=== PATIENT | male | born 1965 | race Caucasian/White ===

== ENCOUNTER 2018-05-08 10:56 | Inpatient (IN) | payer OTHER ==
--- NOTE | 2018-05-08 12:26 | HP ---
COWS - Scale Resting Pulse: 0= [place] 80 or Below Sweatin= Chills/Flushing Restless Observation: 3= Extraneous Movement Pupil Size: 1= Pupils >than Normal Bone or Joint Aches: 2= Severe Diffuse Aches Runny Nose/ Eye Tearin= Runny Nose/Eyes GI Upset > 30mins: 3= Vomiting/Diarrhea Tremor Observation: 2= Slight Tremor Visible Yawning Observation: 1= 1-2x During Session Anxiety or Irritability: 2=Irritable/Anxious Goose Flesh Skin: 0=Smooth Skin COWS Score: 17 CIWA Score - CIWA Score Nausea/Vomitin Muscle Tremors: 3 Anxiety: 2 Agitation: 2 Paroxysmal Sweats: 1-Minimal Palms Moist Orientation: 0-Oriented Tacttile Disturbances: 1-Very Mild Itch/Numbness Auditory Disturbances: 1-Very Mild Visual Disturbances: 1-Very Mild Sensitivity Headache: 2-Mild CIWA-Ar Total Score: 16 Admission ROS BHS - HPI Chief Complaint: i need help camilla stop using heroin and alcohol Allergies/Adverse Reactions: Allergies Allergy/AdvReac Type Severity Reaction Status Date / Time Fish Containing Products Allergy Severe Verified 05/08/18 12:32 rofecoxib [From Vioxx] Allergy Severe Verified 05/08/18 12:32 History of Present Illness: this 53 years old male with heroin and alcohol dependence,seeking detox, withdrawal symptom,last detox [facility] 05/03/18 to 05/06/18 not completed surgery for hernia at age of [age] years old anxiety,depression,insomnia nicotine dependence plantar fasciitis longest period of sobriety 2 years Exam Limitations: No Limitations - Ebola screening Have you traveled outside of the country in the last 21 days: No Have you had contact with anyone from an Ebola affected area: No Have you been sick,other than usual withdrawal symptoms: No Do you have a fever: No - Review of Systems Constitutional: Chills, Loss of Appetite, Malaise, Night Sweats, Changes in sleep, Weakness, Unintentional Wgt. Loss EENT: reports: Tearing, Nose Congestion Respiratory: reports: No Symptoms reported Cardiac: reports: No Symptoms Reported GI: reports: Diarrhea, Nausea, Vomiting, Abdominal cramping, Other (scar in epigastrium) : reports: No Symptoms Reported Musculoskeletal: reports: Back Pain, Joint Pain, Muscle Pain, Joint Stiffness Integumentary: reports: Dryness Neuro: reports: Headache, Tremors Endocrine: reports: No Symptoms Reported Hematology: reports: No Symptoms Reported Psychiatric: reports: No Sypmtoms Reported, Judgement Intact, Mood/Affect Appropiate, Anxious, Depressed (insomnia) Patient History - Patient Medical History Hx Asthma: Yes (childhood asthma.) Hx Chronic Obstructive Pulmonary Disease (COPD): No Hx Cancer: No Hx Cardiac Disorders: No Hx Congestive Heart Failure: No Hx Hypertension: No Hx Hypercholesterolemia: No Hx Pacemaker: No HX Cerebrovascular Accident: No Hx Seizures: No Hx Dementia: No Hx Diabetes: No Hx Gastrointestinal Disorders: No Hx Liver Disease: No Hx Genitourinary Disorders: No Hx Sexually Transmitted Disorders: No Hx Renal Disease (ESRD): No Hx Thyroid Disease: No Hx Human Immunodeficiency Virus (HIV): No (2008 negative ) Hx Hepatitis C: No Hx Depression: Yes Hx Suicide Attempt: No Hx Bipolar Disorder: No Hx Schizophrenia: No Other Medical History: no suicidal,no homicidal - Patient Surgical History Past Surgical History: Yes Hx Abdominal Surgery: Yes Other Surgical History: Pt had sx for hiatal hernia at age 12 yrs old. Anesthesia Reaction: No - PPD History Previous Implant?: Yes Documented Results: Negative w/o proof Implanted On Prior [facility] Admission?: No PPD to be Administered?: Yes - Smoking Cessation Smoking history: Current every day smoker Have you smoked in the past 12 months: Yes Aproximately how many cigarettes per day: 10 Hx Chewing Tobacco Use: No Initiated information on smoking cessation: Yes 'Breaking Loose' booklet given: 05/08/18 - Substance & Tx. History Hx Alcohol Use: Yes Hx Substance Use: Yes Substance Use Type: Alcohol, Heroin Hx Substance Use Treatment: Yes ([facility] to 05/06/18 not completed) - Substances Abused Heroin Route: Inhalation Frequency: Daily Amount used: 7 bags Age of first use: 21 Date of Last Use: 05/07/18 Alcohol Route: Oral Frequency: Daily Amount used: 18 beers (12 oz) Age of first use: 17 Date of Last Use: 05/07/18 Family Disease History - Family Disease History Family History: Denies Admission Physical Exam BHS - Vital Signs Vital Signs: Vital Signs - 24 hr 05/08/18 11:05 Temperature 97.2 F L Pulse Rate 73 Respiratory 18 Rate Blood Pressure 131/76 - Physical General Appearance: Yes: Moderate Distress, Alcohol on Breath, Tremorous, Irritable, Sweating, Anxious HEENTM: Yes: Normal ENT Inspection, HEBERT, Pharynx Normal Respiratory: Yes: Within Normal Limits, Lungs Clear, Normal Breath Sounds Neck: Yes: Within Normal Limits, Supple, Trachea in good position Breast: Yes: Within Normal Limits Cardiology: Yes: Within Normal Limits, Regular Rhythm, Regular Rate, S1, S2 Abdominal: Yes: Within Normal Limits, Normal Bowel Sounds, Non Tender, Soft Genitourinary: Yes: Within Normal Limits Back: Yes: Muscle Spasm Musculoskeletal: Yes: full range of Motion, Back pain, Joint Stiffness, Muscle Pain Extremities: Yes: Normal Range of Motion, Tremors Neurological: Yes: return checker II-XII NML intact, Fully Oriented, Alert, Motor Strength 5/5 Integumentary: Yes: Dry Lymphatic: Yes: Within Normal Limits - Diagnostic (1) Opioid dependence with withdrawal Current Visit: Yes Status: Acute (2) Alcohol dependence with uncomplicated withdrawal Current Visit: Yes Status: Acute (3) Weight loss Current Visit: Yes Status: Acute (4) Anxiety and depression Current Visit: Yes Status: Acute (5) Insomnia Current Visit: Yes Status: Acute (6) Nicotine dependence Current Visit: Yes Status: Acute (7) History of abdominal surgery Current Visit: Yes Status: Acute Cleared for Admission [facility] - Detox or Rehab [facility] Level of Care: Medically Managed Detox Regimen/Protocol: Methadone/Librium [facility] Breath Alcohol Content Breath Alcohol Content: 0 Urine Drug Screen - Results Drug Screen Negative: No Urine Drug Screen Results: OPI-Opiates, MTD-Methadone, OXY-Oxycodone, FEN- Fentanyl
[2018-05-08 12:35] VITALS: BMI 25.7
[2018-05-08] MEDS ORDERED: LOPERAMIDE HCL 2 MG CAPSULE PO PRN (12:37)
[2018-05-08] MEDS ORDERED: ACETAMINOPHEN 325 MG TABLET (FP) PO PRN (12:37)
[2018-05-08] MEDS ORDERED: P-EPHED 60MG/TRIPROLIDI 2.5MG TABLET PO PRN (12:37)
[2018-05-08] MEDS ORDERED: hydrOXYzine PAMOATE 25 MG CAPSULE (FP) PO PRN (12:37)
[2018-05-08] MEDS ORDERED: guaiFENesin/D-METHORPHAN HB 10 ML UNIT-DOSE CUPS PO PRN (12:37)
[2018-05-08] MEDS ORDERED: MAGNESIUM HYDROX 2400MG/30ML ORAL SUSPENSION 30 ML CUP PO PRN (12:37)
[2018-05-08] MEDS ORDERED: MENTHOL/PHENOL 1 EACH UD MM PRN (12:37)
[2018-05-08] MEDS ORDERED: MAGNESIUM CITRATE 300 ML BOTTLE PO PRN (12:37)
[2018-05-08] MEDS ORDERED: IBUPROFEN 400 MG TABLET (FP) PO PRN (12:37)
[2018-05-08] MEDS ORDERED: MAG HYDROX/AL HYDROX/SIMETH 30 ML UNIT-DOSE CUP PO PRN (12:37)
[2018-05-08] MEDS ORDERED: METHADONE HCL 10 MG TABLET (FOR DETOX USE ONLY) PO ONE ×2 (13:20→23:00)
[2018-05-08] MEDS: chlordiazePOXIDE HCL 25 MG CAPSULE PO PRN (14:01)
[2018-05-08] MEDS: NICOTINE 14 MG/24 HOURS TOPICAL PATCH TD SCH (14:01)
--- NOTE | 2018-05-08 15:25 | EKG ---
Test Reason : Blood Pressure : / mmHG Vent. Rate : 070 BPM Atrial Rate : 070 BPM P-R Int : 126 ms QRS Dur : 098 ms QT Int : 384 ms P-R-T Axes : 061 054 046 degrees QTc Int : 414 ms NORMAL SINUS RHYTHM MINIMAL VOLTAGE CRITERIA FOR LVH, MAY BE NORMAL VARIANT BORDERLINE ECG NO PREVIOUS ECGS AVAILABLE Confirmed by MARCELA CLARKE MD ([id number]) on 05/08/2018 3:25:36 PM Referred By: Confirmed By:MARCELA CLARKE MD
[2018-05-08] MEDS: chlordiazePOXIDE HCL 25 MG CAPSULE PO SCH ×2 (16:57→22:32)
[2018-05-08 17:20] LABS: URINE APPEARANCE CLEAR; URINE BILIRUBIN NEGATIVE (<2.0 mg/dL); URINE COLOR YELLOW; URINE GLUCOSE (UA) NEGATIVE (NEGATIVE); URINE KETONE NEGATIVE (NEGATIVE); URINE LEUK ESTERASE NEGATIVE (NEGATIVE); URINE NITRITE NEGATIVE (NEGATIVE); URINE PROTEIN NEGATIVE (NEGATIVE); URINE UROBILINOGEN NEGATIVE mg/dL (0.2-1.0)
--- NOTE | 2018-05-08 18:40 | CONSULT ---
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 Substance Abuse History: Confirmed by the patient in this interview.Details in current [facility] report : Smoking history: Current every day smoker. Have you smoked in the past 12 months: Yes. Aproximately how many cigarettes per day: 10. Hx Chewing Tobacco Use: No. Initiated information on smoking cessation: Yes. 'Breaking Loose' booklet given: 05/08/18. - Substance & Tx. History. Hx Alcohol Use: Yes. Hx Substance Use: Yes. Substance Use Type: Alcohol, Heroin. Hx Substance Use Treatment: Yes ([facility] to 05/06/18 not completed). - Substances Abused. Heroin. Route: Inhalation. Frequency: Daily. Amount used: 7 bags. Age of first use: 21. Date of Last Use: . Alcohol. Route: Oral. Frequency: Daily. Amount used: 18 beers (12 oz) . Age of first use: 17. Date of Last Use: 05/07/18 Medical History: Remarkable for plantar fasciitis,tendinitis of both knees and a distant history of surgery for hiatal hernia (age 12). Psychiatric History: No reported history of psychiatric hospitalizations.Patient declares that he got diagnosed with ADHD in childhood.No details about treatment (no longer recalled).Mr Sargent denies having a psychiatric illness in this interview.Complains, however, of refractory insomnia that has responded favorably to trazodone (taken in the past at detox/rehab institutions).Patient denies history of suicide attempts. Physical/Sexual Abuse/Trauma History: Patient denies. Additional Comment: Urine Drug Screen Results: OPI-Opiates, MTD-Methadone, OXY- Oxycodone, FEN-Fentanyl.Noted. Mental Status Exam - Mental Status Exam Alert and Oriented to: Time, Place, Person Cognitive Function: Good Patient Appearance: Well Groomed Mood: Nervous, Anxious, Hopeful Affect: Mood Congruent Patient Behavior: Fatigued, Cooperative Speech Pattern: Clear, Appropriate Voice Loudness: Normal Thought Process: Intact, Goal Oriented Thought Disorder: Not Present Hallucinations: Denies Suicidal Ideation: Denies Insight/Judgement: Poor Sleep: Poorly, Difficulty falling asleep Appetite: Good Muscle strength/Tone: Normal Gait/Station: Normal Psychiatric Findings - Problem List ([place] 1, 2,3) (1) Opioid dependence with withdrawal Current Visit: Yes Status: Acute (2) Alcohol dependence with uncomplicated withdrawal Current Visit: Yes Status: Acute (3) Nicotine dependence Current Visit: Yes Status: Acute (4) Insomnia Current Visit: Yes Status: Acute - Initial Treatment Plan Initial Treatment Plan: Psychoeducation.Sleep hygiene.Detoxification.Trazodone 100 mg po hs.Ordered at patient's specific request.Patient is made aware of the potential for priapism and sedation.Mr Cobb agrees to this careplan (with full knowledge of risks).Observation.
[2018-05-08] MEDS ORDERED: MELATONIN 5 MG TABLETS PO PRN (22:00)
[2018-05-08] MEDS: traZODone HCL 100 MG TABLET (FP) PO SCH (22:32)
[2018-05-08] MEDS: THIAMINE HCL 100 MG TABLET (FP) PO SCH (22:32)
[2018-05-09] MEDS: chlordiazePOXIDE HCL 25 MG CAPSULE PO SCH ×4 (06:05→22:57)
[2018-05-09] MEDS ORDERED: METHADONE HCL 10 MG TABLET (FOR DETOX USE ONLY) PO SCH (10:00)
[2018-05-09 10:02] LABS: HEMATOCRIT 43.1 % (35.4-49); HEMOGLOBIN 14.4 GM/dL (11.7-16.9); MCH 30.1 pg (25.7-33.7); MCHC 33.3 g/dl (32.0-35.9); MEAN CELL VOLUME 90.2 fl (80-96); MEAN PLT VOLUME 9.6 fl (7.5-11.1); PLATELET COUNT 225 K/MM3 (134-434); RBC 4.78 M/mm3 (4.00-5.60); RDW 14.4 % (11.9-15.9); WHITE BLOOD COUNT 7.2 K/mm3 (4.0-10.0)
[2018-05-09] MEDS: PRENATAL VITAMINS W/ FOLIC ACID TABLET (FP) PO SCH (10:12)
[2018-05-09] MEDS: NICOTINE 14 MG/24 HOURS TOPICAL PATCH TD SCH (10:12)
[2018-05-09 10:19] LABS: ALBUMIN 3.6 g/dl (3.4-5.0); ALK PHOS 98 U/L (45-117); ANION GAP 5 MMOL/L (8-16); BILIRUBIN,TOTAL 0.4 mg/dL (0.2-1); BLOOD UREA NITROGEN 14 mg/dL (7-18); CALCIUM 8.9 mg/dL (8.5-10.1); CHLORIDE 105 mmol/L (98-107); CO2 27 mmol/L (21-32); CREATININE 0.9 mg/dL (0.55-1.3); GLUCOSE,RANDOM 92 mg/dL (74-106); POTASSIUM 4.2 mmol/L (3.5-5.1); SGOT/AST 15 U/L (15-37); SGPT/ALT 21 U/L (13-61); SODIUM 137 mmol/L (136-145)
--- NOTE | 2018-05-09 12:03 | PN ---
[facility] CIWA - CIWA Score Nausea/Vomitin Muscle Tremors: 4-Moderate,w/Arms Extend Anxiety: 4-Mod. Anxious/Guarded Agitation: 4-Moderately Restless Paroxysmal Sweats: 3 Orientation: 0-Oriented Tacttile Disturbances: 0-None Auditory Disturbances: 0-None Visual Disturbances: 0-None Headache: 1-Very Mild CIWA-Ar Total Score: 19 [facility] COWS - Scale Resting Pulse: 0= [place] 80 or Below Sweatin= Chills/Flushing Restless Observation: 3= Extraneous Movement Pupil Size: 0= Normal to Room Light Bone or Joint Aches: 2= Severe Diffuse Aches Runny Nose/ Eye Tearin= Runny Nose/Eyes GI Upset > 30mins: 2= Nausea/Diarrhea Tremor Observation of Outstretched Hands: 2= Slight Tremor Visible Yawning Observation: 1= 1-2x During Session Anxiety or Irritability: 2=Irritable/Anxious Goose Flesh Skin: 0=Smooth Skin COWS Score: 15 [facility] Progress Note (SOAP) Subjective: Anxious, interrupted sleep Objective: 05/09/18 12:02 Last Vital Signs Temp Pulse Resp BP Pulse Ox 96.3 F L 59 L 18 104/57 L 05/09/18 09:14 05/09/18 09:14 05/09/18 09:14 05/09/18 09:14 Laboratory Tests 05/08/18 05/09/18 05/09/18 14:40 06:00 06:00 WBC 7.2 RBC 4.78 Hgb 14.4 Hct 43.1 MCV 90.2 MCH 30.1 MCHC 33.3 RDW 14.4 Plt Count 225 MPV 9.6 Sodium 137 Potassium 4.2 Chloride 105 Carbon Dioxide 27 Anion Gap 5 L BUN 14 Creatinine 0.9 Creat Clearance w eGFR > 60 Random Glucose 92 Calcium 8.9 Total Bilirubin 0.4 AST 15 ALT 21 Alkaline Phosphatase 98 Total Protein 7.0 Albumin 3.6 Urine Color Yellow Urine Appearance Clear Urine pH 6.0 Ur Specific [place] 1.023 Urine Protein Negative Urine Glucose (UA) Negative Urine Ketones Negative Urine Blood Negative Urine Nitrite Negative Urine Bilirubin Negative Urine Urobilinogen Negative Ur Leukocyte Esterase Negative RPR Titer 05/09/18 06:00 WBC RBC Hgb Hct MCV MCH MCHC RDW Plt Count MPV Sodium Potassium Chloride Carbon Dioxide Anion Gap BUN Creatinine Creat Clearance w eGFR Random Glucose Calcium Total Bilirubin AST ALT Alkaline Phosphatase Total Protein Albumin Urine Color Urine Appearance Urine pH Ur Specific [place] Urine Protein Urine Glucose (UA) Urine Ketones Urine Blood Urine Nitrite Urine Bilirubin Urine Urobilinogen Ur Leukocyte Esterase RPR Titer Nonreactive Labs reviewed Assessment: 05/09/18 12:03 Withdrawal symptoms Plan: Continue detox Encouraged PO water hydration
[2018-05-09] MEDS: chlordiazePOXIDE HCL 25 MG CAPSULE PO PRN (14:30)
[2018-05-09] MEDS: THIAMINE HCL 100 MG TABLET (FP) PO SCH (22:57)
[2018-05-09] MEDS: traZODone HCL 100 MG TABLET (FP) PO SCH (22:58)
[2018-05-10] MEDS: chlordiazePOXIDE HCL 25 MG CAPSULE PO SCH ×2 (06:50→10:18)
[2018-05-10] MEDS: PRENATAL VITAMINS W/ FOLIC ACID TABLET (FP) PO SCH (10:16)
[2018-05-10] MEDS: METHADONE HCL 5 MG TABLET (FOR DETOX USE ONLY) PO SCH (10:17)
[2018-05-10] MEDS: NICOTINE 14 MG/24 HOURS TOPICAL PATCH TD SCH (10:18)
--- NOTE | 2018-05-10 12:38 | PN ---
[facility] CIWA - CIWA Score Nausea/Vomitin-Mild Nausea/No Vomiting Muscle Tremors: 3 Anxiety: 4-Mod. Anxious/Guarded Agitation: 3 Paroxysmal Sweats: 3 Orientation: 0-Oriented Tacttile Disturbances: 0-None Auditory Disturbances: 0-None Visual Disturbances: 0-None Headache: 1-Very Mild CIWA-Ar Total Score: 15 [facility] COWS - Scale Resting Pulse: 0= [place] 80 or Below Sweatin= Chills/Flushing Restless Observation: 3= Extraneous Movement Pupil Size: 0= Normal to Room Light Bone or Joint Aches: 2= Severe Diffuse Aches Runny Nose/ Eye Tearin= Runny Nose/Eyes GI Upset > 30mins: 2= Nausea/Diarrhea Tremor Observation of Outstretched Hands: 2= Slight Tremor Visible Yawning Observation: 1= 1-2x During Session Anxiety or Irritability: 2=Irritable/Anxious Goose Flesh Skin: 0=Smooth Skin COWS Score: 15 [facility] Progress Note (SOAP) Subjective: Anxious, sweating, interrupted sleep Objective: 05/10/18 12:37 Last Vital Signs Temp Pulse Resp BP Pulse Ox 97.0 F L 63 18 108/68 05/10/18 09:12 05/10/18 09:12 05/10/18 09:12 05/10/18 09:12 Laboratory Tests 05/08/18 05/09/18 05/09/18 14:40 06:00 06:00 WBC 7.2 RBC 4.78 Hgb 14.4 Hct 43.1 MCV 90.2 MCH 30.1 MCHC 33.3 RDW 14.4 Plt Count 225 MPV 9.6 Sodium 137 Potassium 4.2 Chloride 105 Carbon Dioxide 27 Anion Gap 5 L BUN 14 Creatinine 0.9 Creat Clearance w eGFR > 60 Random Glucose 92 Calcium 8.9 Total Bilirubin 0.4 AST 15 ALT 21 Alkaline Phosphatase 98 Total Protein 7.0 Albumin 3.6 Urine Color Yellow Urine Appearance Clear Urine pH 6.0 Ur Specific [place] 1.023 Urine Protein Negative Urine Glucose (UA) Negative Urine Ketones Negative Urine Blood Negative Urine Nitrite Negative Urine Bilirubin Negative Urine Urobilinogen Negative Ur Leukocyte Esterase Negative RPR Titer 05/09/18 06:00 WBC RBC Hgb Hct MCV MCH MCHC RDW Plt Count MPV Sodium Potassium Chloride Carbon Dioxide Anion Gap BUN Creatinine Creat Clearance w eGFR Random Glucose Calcium Total Bilirubin AST ALT Alkaline Phosphatase Total Protein Albumin Urine Color Urine Appearance Urine pH Ur Specific [place] Urine Protein Urine Glucose (UA) Urine Ketones Urine Blood Urine Nitrite Urine Bilirubin Urine Urobilinogen Ur Leukocyte Esterase RPR Titer Nonreactive Labs reviewed Assessment: 05/10/18 12:38 Withdrawal symptoms Plan: Continue detox
[2018-05-10] MEDS: chlordiazePOXIDE 5 MG CAPSULE PO SCH ×2 (18:12→22:31)
[2018-05-10] MEDS: THIAMINE HCL 100 MG TABLET (FP) PO SCH (22:31)
[2018-05-10] MEDS: traZODone HCL 100 MG TABLET (FP) PO SCH (22:31)
[2018-05-11] MEDS: chlordiazePOXIDE 5 MG CAPSULE PO SCH ×2 (05:38→10:47)
[2018-05-11] MEDS: PRENATAL VITAMINS W/ FOLIC ACID TABLET (FP) PO SCH (10:47)
[2018-05-11] MEDS: NICOTINE 14 MG/24 HOURS TOPICAL PATCH TD SCH (10:47)
[2018-05-11] MEDS: METHADONE HCL 5 MG TABLET (FOR DETOX USE ONLY) PO SCH (10:48)
--- NOTE | 2018-05-11 11:27 | PN ---
S Progress Note (SOAP) Subjective: Mild irritability and interrupted sleep Objective: 05/11/18 11:27 Vital Signs - 8 hr 05/11/18 05/11/18 03:30 06:22 Temperature 97.3 F L Pulse Rate 60 Respiratory 18 18 Rate Blood Pressure 100/61 Laboratory Last Values WBC 7.2 K/mm3 (4.0-10.0) 05/09/18 06:00 RBC 4.78 M/mm3 (4.00-5.60) 05/09/18 06:00 Hgb 14.4 GM/dL (11.7-16.9) 05/09/18 06:00 Hct 43.1 % (35.4-49) 05/09/18 06:00 MCV 90.2 fl (80-96) 05/09/18 06:00 MCH 30.1 pg (25.7-33.7) 05/09/18 06:00 MCHC 33.3 g/dl (32.0-35.9) 05/09/18 06:00 RDW 14.4 % (11.9-15.9) 05/09/18 06:00 Plt Count 225 K/MM3 (134-434) 05/09/18 06:00 MPV 9.6 fl (7.5-11.1) 05/09/18 06:00 Sodium 137 mmol/L (136-145) 05/09/18 06:00 Potassium 4.2 mmol/L (3.5-5.1) 05/09/18 06:00 Chloride 105 mmol/L (98-107) 05/09/18 06:00 Carbon Dioxide 27 mmol/L (21-32) 05/09/18 06:00 Anion Gap 5 MMOL/L (8-16) L 05/09/18 06:00 BUN 14 mg/dL (7-18) 05/09/18 06:00 Creatinine 0.9 mg/dL (0.55-1.3) 05/09/18 06:00 Creat Clearance w eGFR > 60 (>60) 05/09/18 06:00 Random Glucose 92 mg/dL (74-106) 05/09/18 06:00 Calcium 8.9 mg/dL (8.5-10.1) 05/09/18 06:00 Total Bilirubin 0.4 mg/dL (0.2-1) 05/09/18 06:00 AST 15 U/L (15-37) 05/09/18 06:00 ALT 21 U/L (13-61) 05/09/18 06:00 Alkaline Phosphatase 98 U/L (45-117) 05/09/18 06:00 Total Protein 7.0 g/dl (6.4-8.2) 05/09/18 06:00 Albumin 3.6 g/dl (3.4-5.0) 05/09/18 06:00 Urine Color Yellow 05/08/18 14:40 Urine Appearance Clear 05/08/18 14:40 Urine pH 6.0 (5.0-8.0) 05/08/18 14:40 Ur Specific [place] 1.023 (1.001-1.035) 05/08/18 14:40 Urine Protein Negative (NEGATIVE) 05/08/18 14:40 Urine Glucose (UA) Negative (NEGATIVE) 05/08/18 14:40 Urine Ketones Negative (NEGATIVE) 05/08/18 14:40 Urine Blood Negative (NEGATIVE) 05/08/18 14:40 Urine Nitrite Negative (NEGATIVE) 05/08/18 14:40 Urine Bilirubin Negative (<2.0 mg/dL) 05/08/18 14:40 Urine Urobilinogen Negative mg/dL (0.2-1.0) 05/08/18 14:40 Ur Leukocyte Esterase Negative (NEGATIVE) 05/08/18 14:40 RPR Titer Nonreactive (NONREACTIVE) 05/09/18 06:00 Labs noted Assessment: 05/11/18 11:27 Withdrawal sx Plan: Continue detox
[2018-05-11] MEDS: chlordiazePOXIDE HCL 10 MG CAPSULE PO SCH ×2 (17:31→22:17)
[2018-05-11] MEDS: traZODone HCL 100 MG TABLET (FP) PO SCH (22:17)
[2018-05-11] MEDS: THIAMINE HCL 100 MG TABLET (FP) PO SCH (22:17)
[2018-05-12] MEDS: chlordiazePOXIDE HCL 10 MG CAPSULE PO SCH ×2 (05:50→10:15)
[2018-05-12] MEDS ORDERED: METHADONE HCL 10 MG TABLET (FOR DETOX USE ONLY) PO SCH (10:00)
[2018-05-12] MEDS: PRENATAL VITAMINS W/ FOLIC ACID TABLET (FP) PO SCH (10:16)
[2018-05-12] MEDS: NICOTINE 14 MG/24 HOURS TOPICAL PATCH TD SCH (10:16)
--- NOTE | 2018-05-12 16:43 | PN ---
[facility] Progress Note (SOAP) Subjective: Denies any complaints; appears anxious, restless Objective: 05/12/18 16:42 Last Vital Signs Temp Pulse Resp BP Pulse Ox 96.4 F L 74 18 112/79 05/12/18 14:53 05/12/18 14:53 05/12/18 14:53 05/12/18 14:53 Laboratory Tests 05/08/18 05/09/18 05/09/18 14:40 06:00 06:00 WBC 7.2 RBC 4.78 Hgb 14.4 Hct 43.1 MCV 90.2 MCH 30.1 MCHC 33.3 RDW 14.4 Plt Count 225 MPV 9.6 Sodium 137 Potassium 4.2 Chloride 105 Carbon Dioxide 27 Anion Gap 5 L BUN 14 Creatinine 0.9 Creat Clearance w eGFR > 60 Random Glucose 92 Calcium 8.9 Total Bilirubin 0.4 AST 15 ALT 21 Alkaline Phosphatase 98 Total Protein 7.0 Albumin 3.6 Urine Color Yellow Urine Appearance Clear Urine pH 6.0 Ur Specific [place] 1.023 Urine Protein Negative Urine Glucose (UA) Negative Urine Ketones Negative Urine Blood Negative Urine Nitrite Negative Urine Bilirubin Negative Urine Urobilinogen Negative Ur Leukocyte Esterase Negative RPR Titer 05/09/18 06:00 WBC RBC Hgb Hct MCV MCH MCHC RDW Plt Count MPV Sodium Potassium Chloride Carbon Dioxide Anion Gap BUN Creatinine Creat Clearance w eGFR Random Glucose Calcium Total Bilirubin AST ALT Alkaline Phosphatase Total Protein Albumin Urine Color Urine Appearance Urine pH Ur Specific [place] Urine Protein Urine Glucose (UA) Urine Ketones Urine Blood Urine Nitrite Urine Bilirubin Urine Urobilinogen Ur Leukocyte Esterase RPR Titer Nonreactive Labs reviewed Assessment: 05/12/18 16:42 Withdrawal sx Plan: Continue detox
[2018-05-12] MEDS: THIAMINE HCL 100 MG TABLET (FP) PO SCH (22:14)
[2018-05-12] MEDS: traZODone HCL 100 MG TABLET (FP) PO SCH (22:14)
[2018-05-13] MEDS ORDERED: METHADONE HCL 5 MG TABLET (FOR DETOX USE ONLY) PO SCH (06:00)
[2018-05-13] MEDS: NICOTINE 14 MG/24 HOURS TOPICAL PATCH TD SCH (10:12)
[2018-05-13] MEDS: PRENATAL VITAMINS W/ FOLIC ACID TABLET (FP) PO SCH (10:12)
--- NOTE | 2018-05-13 12:52 | DS ---
[facility] Detox Discharge Summary Admission Date: 05/08/18 Discharge Date: 05/13/18 - History Present History: Alcohol Dependence, Opioid Dependence Pertinent Past History: Denies - Physical Exam Results Vital Signs: Vital Signs Temperature 97.2 F L 05/13/18 09:44 Pulse Rate 93 H 05/13/18 09:44 Respiratory Rate 18 05/13/18 09:44 Blood Pressure 105/68 05/13/18 09:44 O2 Sat by Pulse Oximetry (%) Pertinent Admission Physical Exam Findings: Withdrawal sxs Laboratory Tests 05/08/18 05/09/18 05/09/18 14:40 06:00 06:00 WBC 7.2 RBC 4.78 Hgb 14.4 Hct 43.1 MCV 90.2 MCH 30.1 MCHC 33.3 RDW 14.4 Plt Count 225 MPV 9.6 Sodium 137 Potassium 4.2 Chloride 105 Carbon Dioxide 27 Anion Gap 5 L BUN 14 Creatinine 0.9 Creat Clearance w eGFR > 60 Random Glucose 92 Calcium 8.9 Total Bilirubin 0.4 AST 15 ALT 21 Alkaline Phosphatase 98 Total Protein 7.0 Albumin 3.6 Urine Color Yellow Urine Appearance Clear Urine pH 6.0 Ur Specific [place] 1.023 Urine Protein Negative Urine Glucose (UA) Negative Urine Ketones Negative Urine Blood Negative Urine Nitrite Negative Urine Bilirubin Negative Urine Urobilinogen Negative Ur Leukocyte Esterase Negative RPR Titer 05/09/18 06:00 WBC RBC Hgb Hct MCV MCH MCHC RDW Plt Count MPV Sodium Potassium Chloride Carbon Dioxide Anion Gap BUN Creatinine Creat Clearance w eGFR Random Glucose Calcium Total Bilirubin AST ALT Alkaline Phosphatase Total Protein Albumin Urine Color Urine Appearance Urine pH Ur Specific [place] Urine Protein Urine Glucose (UA) Urine Ketones Urine Blood Urine Nitrite Urine Bilirubin Urine Urobilinogen Ur Leukocyte Esterase RPR Titer Nonreactive Labs reviewed - Treatment Hospital Course: Detox Protocol Followed, Detoxed Safely, Responded well, Discharged Condition Good - Medication Discharge Medications: Ambulatory Orders NK [No Known Home Medication] 05/08/18 - Diagnosis (1) Alcohol dependence with uncomplicated withdrawal Current Visit: Yes Status: Acute (2) Anxiety and depression Current Visit: Yes Status: Acute (3) Insomnia Current Visit: Yes Status: Acute Qualifiers: Insomnia type: alcohol-induced Qualified Code(s): F10.982 - Alcohol use, unspecified with alcohol-induced sleep disorder (4) Nicotine dependence Current Visit: Yes Status: Acute Qualifiers: Nicotine product type: cigarettes Substance use status: uncomplicated Qualified Code(s): F17.210 - Nicotine dependence, cigarettes, uncomplicated (5) Opioid dependence with withdrawal Current Visit: Yes Status: Acute - AMA Did Patient Leave Against Medical Advice: No (F/U with PCP within 1-2 weeks)
[2018-05-13 13:42] VITALS: BP 97/67; PULSE 91; TEMP 97
== END 2018-05-13 17:17 | disposition other institution (70) | DRG 773 ==
LOC: YASAS 10:56 → Y3N 12:37
PROC: HZ2ZZZZ Detoxification Services for Substance Abuse Treatment (ICD-10-PCS; principal; 2018-05-08)
DX: F11.23 Opioid dependence with withdrawal (principal); F10.230 Alcohol dependence with withdrawal, uncomplicated; F10.282 Alcohol dependence with alcohol-induced sleep disorder; F17.210 Nicotine dependence, cigarettes, uncomplicated; F41.8 Other specified anxiety disorders; Z91.013 Allergy to seafood; Z88.8 Allergy status to other drugs, medicaments and biological substances; Z87.898 Personal history of other specified conditions
CPT/HCPCS: 36415; 80053; 81003; 85027; 86593; 93005; 93010

== ENCOUNTER 2018-05-13 17:38 | Inpatient (IN) | payer OTHER ==
[2018-05-13 19:47] VITALS: BMI 26.6
[2018-05-13] MEDS ORDERED: MAG HYDROX/AL HYDROX/SIMETH 30 ML UNIT-DOSE CUP PO PRN (20:26)
[2018-05-13] MEDS ORDERED: LOPERAMIDE HCL 2 MG CAPSULE PO PRN (20:26)
[2018-05-13] MEDS ORDERED: MAGNESIUM CITRATE 300 ML BOTTLE PO PRN (20:26)
[2018-05-13] MEDS ORDERED: NICOTINE POLACRILEX 2 MG GUM BUC PRN (20:26)
[2018-05-13] MEDS ORDERED: hydrOXYzine PAMOATE 50 MG CAPSULE (FP) PO PRN (20:26)
[2018-05-13] MEDS ORDERED: guaiFENesin/D-METHORPHAN HB 10 ML UNIT-DOSE CUPS PO PRN (20:26)
[2018-05-13] MEDS ORDERED: MAGNESIUM HYDROX 2400MG/30ML ORAL SUSPENSION 30 ML CUP PO PRN (20:26)
[2018-05-13] MEDS ORDERED: IBUPROFEN 400 MG TABLET (FP) PO PRN (20:26)
[2018-05-13] MEDS ORDERED: ACETAMINOPHEN 325 MG TABLET (FP) PO PRN (20:26)
[2018-05-13] MEDS ORDERED: P-EPHED 60MG/TRIPROLIDI 2.5MG TABLET PO PRN (20:26)
[2018-05-13] MEDS ORDERED: MENTHOL/PHENOL 1 EACH UD MM PRN (20:26)
--- NOTE | 2018-05-13 20:29 | HP ---
[facility] Rehab Assess/Revision - Admission History Admitted to Rehab from: [facility] [place] Date of Admission to Rehab: 05/13/1981 - Vital signs Vital Signs: Vital Signs Period Temp Pulse Resp BP Sys/Schmid Pulse Ox Last 24 Hr 97.9 F 88 16 134/83 - Findings Detox History & Physical reviewed: Yes Concur with findings: Yes Comments/Additional Findings: Tolerated detox Inpatient Rehab Admission - Initial Determination Are CD services needed?: Yes Free of communicable disease: Yes Not in need of hospitalization: Yes - Rehab Admission Criteria Previous failed treatment: Yes Poor recovery environment: Yes Comorbidities: Yes Lacks judgement: No Patient is meeting Inpatient Rehab admission criteria:: Yes
[2018-05-13] MEDS ORDERED: MELATONIN 5 MG TABLETS PO PRN (22:00)
[2018-05-13] MEDS: THIAMINE HCL 100 MG TABLET (FP) PO SCH (22:06)
[2018-05-13] MEDS: SUVOREXANT 10 MG TABLET PO SCH (22:06)
[2018-05-13] MEDS: traZODone HCL 100 MG TABLET (FP) PO SCH (22:06)
--- NOTE | 2018-05-14 07:54 | HP ---
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 Smokes 10 cigarettes daily Psychiatric History: Patient reports that he was diagnosed with ADHD at age 12 and started on Thorazine up to 100 mg/day. Claims his mother decided to take him off the medication because he was so lethargic and could not function in school even after the dose was lowered. As an adult over the years, he was prescribed Trazadone for insomnia whenever admitted to substance abuse facilities for inpatient treatment. Denies history of previous psychiatric hospitalization or suicidal attempt. He was seen by Dr Mederos on 05/07/18 while in detox and he was prescribed Trazadone 100 mg po HS. Last night Dr Park was called by nursing staff on behalf of patient who could sleep despite taking Trazadone. Dr Small ordered Belsomra 10 mg po HS prn. At present, reports doing well but sleeping poorly before getting combinanation of meds Physical/Sexual Abuse/Trauma History: Denies Additional Comment: Reports history of multiple previous arrests including 3 felony convictions. Denies being on parole/probation at present Vital Signs: Vital Signs - 24 hr 05/13/18 05/14/18 05/14/18 17:40 00:30 03:30 Temperature 97.9 F Pulse Rate 88 Respiratory 16 16 16 Rate Blood Pressure 134/83 05/14/18 07:06 Temperature -97.7 F L Pulse Rate 74 Respiratory 18 Rate Blood Pressure 104/68 Allergies/Adverse Reactions: Allergies Allergy/AdvReac Type Severity Reaction Status Date / Time Fish Containing Products Allergy Severe Itching Verified 05/13/18 19:09 rofecoxib [From Vioxx] Allergy Severe Hives Verified 05/13/18 19:09 Date of last physical exam: 05/08/18 Concur with the findings of this exam: Yes - Substance Abuse/Tx History Hx Alcohol Use: Yes Hx Substance Use: Yes Substance Use Type: Alcohol (Started drinking alcohol at age 17, consumes 18x 12oz of beer daily. Last drank on 05/07/18), Heroin (Started using heroin at age 21, consumes 7 bags daily. Last used on 05/07/18) Hx Substance Use Treatment: Yes (Multiple previous inpt detox & 5 inpt rehab admissions) Mental Status Exam - Mental Status Exam Alert and Oriented to: Time, Place, Person Cognitive Function: Fair Patient Appearance: Well Groomed Mood: Hopeful, Euthymic Patient Behavior: Cooperative Speech Pattern: Clear Voice Loudness: Normal Thought Process: Intact, Goal Oriented Thought Disorder: Not Present Hallucinations: Denies Suicidal Ideation: Denies Homicidal Ideation: Denies Insight/Judgement: Fair Sleep: Poorly Appetite: Good Muscle strength/Tone: Normal Gait/Station: Normal Psychiatric Findings - Problem List ([place] 1, 2,3) (1) Alcohol dependence Current Visit: Yes Status: Acute (2) Opioid dependence Current Visit: Yes Status: Acute (3) Nicotine dependence Current Visit: No Status: Chronic Qualifiers: Nicotine product type: cigarettes Substance use status: uncomplicated Qualified Code(s): F17.210 - Nicotine dependence, cigarettes, uncomplicated (4) ADHD (attention deficit hyperactivity disorder) Current Visit: Yes Status: Chronic (5) Substance-induced sleep disorder Current Visit: Yes Status: Acute (6) History of abdominal surgery Current Visit: No Status: Suspected - Initial Treatment Plan Initial Treatment Plan: 1) Continue Trazadone 100 mg po HS and Belsomra 10 mg po HS prn for insomnia. 2) Monitor progress
[2018-05-14] MEDS: NICOTINE 14 MG/24 HOURS TOPICAL PATCH TD SCH (10:20)
[2018-05-14] MEDS: PRENATAL VITAMINS W/ FOLIC ACID TABLET (FP) PO SCH (10:21)
[2018-05-14] MEDS: traZODone HCL 100 MG TABLET (FP) PO SCH (21:17)
[2018-05-14] MEDS: THIAMINE HCL 100 MG TABLET (FP) PO SCH (21:17)
[2018-05-14] MEDS: SUVOREXANT 10 MG TABLET PO SCH (21:17)
[2018-05-15] MEDS: PRENATAL VITAMINS W/ FOLIC ACID TABLET (FP) PO SCH (10:22)
[2018-05-15] MEDS: NICOTINE 14 MG/24 HOURS TOPICAL PATCH TD SCH (10:22)
[2018-05-15] MEDS: SUVOREXANT 10 MG TABLET PO SCH (21:09)
[2018-05-15] MEDS: traZODone HCL 100 MG TABLET (FP) PO SCH (21:09)
[2018-05-15] MEDS: THIAMINE HCL 100 MG TABLET (FP) PO SCH (21:09)
[2018-05-16] MEDS: PRENATAL VITAMINS W/ FOLIC ACID TABLET (FP) PO SCH (10:01)
[2018-05-16] MEDS: NICOTINE 14 MG/24 HOURS TOPICAL PATCH TD SCH (10:01)
[2018-05-16] MEDS: SUVOREXANT 10 MG TABLET PO SCH (21:23)
[2018-05-16] MEDS: THIAMINE HCL 100 MG TABLET (FP) PO SCH (21:23)
[2018-05-16] MEDS: traZODone HCL 100 MG TABLET (FP) PO SCH (21:23)
[2018-05-17 07:23] VITALS: BP 134/77; PULSE 76; TEMP 97.8
--- NOTE | 2018-05-17 10:43 | PN ---
[facility] Progress Note Note: PT DECLINED TO CONTINUE WITH REHAB AND WANTS TO SIGN OUT AMA. SPOKEN TO BY COUNSELING STAFF. ALERT O X 3. NAD. Vital Signs 05/17/18 05/17/18 03:30 07:23 Temperature 97.8 F Pulse Rate 76 Respiratory 16 18 Rate Blood Pressure 134/77
[2018-05-17] MEDS: NICOTINE 14 MG/24 HOURS TOPICAL PATCH TD SCH (10:51)
[2018-05-17] MEDS: PRENATAL VITAMINS W/ FOLIC ACID TABLET (FP) PO SCH (10:51)
== END 2018-05-17 10:42 | disposition left against medical advice (07) | DRG 770 ==
LOC: YASAS 17:38 → Y3W 17:40
PROVIDERS: ADMIT Psychiatry & Neurology Psychiatry; ATTEND Psychiatry & Neurology Psychiatry
PROC: HZ42ZZZ Group Counseling for Substance Abuse Treatment, Cognitive-Behavioral (ICD-10-PCS; principal; 2018-05-13)
DX: F11.20 Opioid dependence, uncomplicated (principal); F10.20 Alcohol dependence, uncomplicated; F17.210 Nicotine dependence, cigarettes, uncomplicated; F19.282 Other psychoactive substance dependence with psychoactive substance-induced sleep disorder; F90.9 Attention-deficit hyperactivity disorder, unspecified type

== ENCOUNTER 2018-06-25 11:14 | Inpatient (IN) | payer OTHER ==
[2018-06-25 12:02] VITALS: BMI 26.3
--- NOTE | 2018-06-25 12:52 | HP ---
COWS - Scale Resting Pulse: 0= [place] 80 or Below Sweatin= Chills/Flushing Restless Observation: 1= Difficult to Sit Still Pupil Size: 1= Pupils >than Normal Bone or Joint Aches: 2= Severe Diffuse Aches Runny Nose/ Eye Tearin= Runny Nose/Eyes GI Upset > 30mins: 2= Nausea/Diarrhea Tremor Observation: 2= Slight Tremor Visible Yawning Observation: 2= >3x During Session Anxiety or Irritability: 2=Irritable/Anxious Goose Flesh Skin: 0=Smooth Skin COWS Score: 15 CIWA Score Nausea/Vomitin Muscle Tremors: 2 Anxiety: 2 Agitation: 2 Paroxysmal Sweats: 1-Minimal Palms Moist Orientation: 0-Oriented Tacttile Disturbances: 1-Very Mild Itch/Numbness Auditory Disturbances: 1-Very Mild Visual Disturbances: 0-None Headache: 2-Mild CIWA-Ar Total Score: 13 - Admission Criteria [facility] Guidelines: Admission for Medically Managed Detox: Requires at least one of the followin. CIWA greater than 12 2. Seizures within the past 24 hours 3. Delirium tremens within the past 24 hours 4. Hallucinations within the past 24 hours 5. Acute intervention needed for co occurring medical disorder 6. Acute intervention needed for co occurring psychiatric disorder 7. Severe withdrawal that cannot be handled at a lower level of care (continued vomiting, continued diarrhea, abnormal vital signs) requiring intravenous medication and/or fluids 8. Patient presents the following: CIWA greater than 12 Admission Criteria Met: Admission criteria met Admission ROS [facility] Chief Complaint: i need help to stop using heroin and alcohol Allergies/Adverse Reactions: Allergies Allergy/AdvReac Type Severity Reaction Status Date / Time Fish Containing Products Allergy Severe Itching Verified 06/25/18 12:43 rofecoxib [From Vioxx] Allergy Severe Hives Verified 06/25/18 12:43 History of Present Illness: this 53 years old male with jluis and alcohol dependence,seeking detox, withdrawal symptom,last detox 05/08/18 to 05/13/18,rehab 05/13/18 to history of plantar fasciitis weight loss anxiety,depression,insomnia history of abdominal surgery at age of 12 years nicotine dependence no significant period of sobriety Exam Limitations: No Limitations - Ebola screening Have you traveled outside of the country in the last 21 days: No Have you had contact with anyone from an Ebola affected area: No Have you been sick,other than usual withdrawal symptoms: No Do you have a fever: No - Review of Systems Constitutional: Loss of Appetite, Malaise, Night Sweats, Changes in sleep, Weakness, Unintentional Wgt. Loss EENT: reports: Tearing, Nose Congestion Respiratory: reports: No Symptoms reported Cardiac: reports: No Symptoms Reported GI: reports: Nausea, Vomiting, Abdominal cramping : reports: No Symptoms Reported Musculoskeletal: reports: Back Pain, Joint Pain, Muscle Pain, Joint Stiffness Integumentary: reports: Dryness Neuro: reports: Headache, Tremors Endocrine: reports: No Symptoms Reported Hematology: reports: No Symptoms Reported Psychiatric: reports: No Sypmtoms Reported, Judgement Intact, Mood/Affect Appropiate, Orientated x3, Anxious, Depressed (insomnia) Patient History - Patient Medical History Hx Anemia: No Hx Asthma: No Hx Chronic Obstructive Pulmonary Disease (COPD): No Hx Cancer: No Hx Cardiac Disorders: No Hx Congestive Heart Failure: No Hx Hypertension: No Hx Hypercholesterolemia: No Hx Pacemaker: No HX Cerebrovascular Accident: No Hx Seizures: No Hx Dementia: No Hx Diabetes: No Hx Gastrointestinal Disorders: No Hx Liver Disease: No Hx Genitourinary Disorders: No Hx Sexually Transmitted Disorders: No Hx Renal Disease (ESRD): No Hx Thyroid Disease: No Hx Human Immunodeficiency Virus (HIV): No (2008 negative ) Hx Hepatitis C: No Hx Depression: No Hx Suicide Attempt: No Hx Bipolar Disorder: No Hx Schizophrenia: No Other Medical History: no suicidal,no homicidal,plantar fasciitis - Patient Surgical History Past Surgical History: Yes Hx Abdominal Surgery: Yes (abdominal surgery diaphramatic hernia at age of 12) Other Surgical History: Pt had sx for hiatal hernia at age 12 yrs old. Anesthesia Reaction: No - PPD History Previous Implant?: Yes Documented Results: Negative w/proof Date: 05/10/18 Results: 0mm PPD to be Administered?: No - Smoking Cessation Smoking history: Current every day smoker Have you smoked in the past 12 months: Yes Aproximately how many cigarettes per day: 10 Hx Chewing Tobacco Use: No Initiated information on smoking cessation: Yes 'Breaking Loose' booklet given: 06/25/18 - Substance & Tx. History Hx Alcohol Use: Yes Hx Substance Use: Yes Substance Use Type: Alcohol, Heroin Hx Substance Use Treatment: Yes ([facility] 05/08/18 to 05/13/18,rehab 05/13/18 to 12/28 not completed) - Substances Abused Heroin Route: Inhalation Frequency: Daily Amount used: 10 BAGS Age of first use: 21 Date of Last Use: 06/25/18 Alcohol Route: Oral Frequency: Daily Amount used: 3 6PKS BEER Age of first use: 17 Date of Last Use: 06/24/18 Family Disease History - Family Disease History Family History: Denies Admission Physical Exam [facility] - Vital Signs Vital Signs: Vital Signs - 24 hr 06/25/18 11:58 Temperature 98.4 F Pulse Rate 71 Respiratory 18 Rate Blood Pressure 131/85 - Physical General Appearance: Yes: Moderate Distress, Tremorous, Irritable, Sweating, Anxious HEENTM: Yes: Normal ENT Inspection, HEBERT, Pharynx Normal Respiratory: Yes: Lungs Clear, Normal Breath Sounds, No Respiratory Distress Neck: Yes: Within Normal Limits, Supple, Trachea in good position Breast: Yes: Within Normal Limits Cardiology: Yes: Within Normal Limits, Regular Rhythm, Regular Rate, S1, S2 Abdominal: Yes: Within Normal Limits, Normal Bowel Sounds, Non Tender, Soft, Surgical Scar (scar in mid line of upper abdomen) Genitourinary: Yes: Within Normal Limits Back: Yes: Muscle Spasm Musculoskeletal: Yes: Back pain, Joint Stiffness, Muscle Pain Extremities: Yes: Tremors Neurological: Yes: Within Normal Limits, recycling assistant II-XII NML intact, Fully Oriented, Alert, Motor Strength 5/5 Integumentary: Yes: Dry Lymphatic: Yes: Within Normal Limits - Diagnostic (1) Opioid dependence with withdrawal Current Visit: Yes Status: Acute (2) Alcohol dependence with uncomplicated withdrawal Current Visit: Yes Status: Acute (3) Weight loss Current Visit: No Status: Acute (4) Nicotine dependence Current Visit: Yes Status: Acute Qualifiers: Nicotine product type: cigarettes Substance use status: uncomplicated Qualified Code(s): F17.210 - Nicotine dependence, cigarettes, uncomplicated (5) History of abdominal surgery Current Visit: No Status: Suspected (6) History of congenital diaphragmatic hernia Current Visit: Yes Status: Acute Cleared for Admission [facility] - Detox or Rehab [facility] Level of Care: Medically Managed Detox Regimen/Protocol: Methadone/Librium S Breath Alcohol Content Breath Alcohol Content: 0 Urine Drug Screen - Results Drug Screen Negative: No Urine Drug Screen Results: OPI-Opiates, BZO-Benzodiazepines, FEN-Fentanyl
[2018-06-25] MEDS ORDERED: guaiFENesin/D-METHORPHAN HB 10 ML UNIT-DOSE CUPS PO PRN (13:16)
[2018-06-25] MEDS ORDERED: IBUPROFEN 400 MG TABLET (FP) PO PRN (13:16)
[2018-06-25] MEDS ORDERED: LOPERAMIDE HCL 2 MG CAPSULE PO PRN (13:16)
[2018-06-25] MEDS ORDERED: MENTHOL/PHENOL 1 EACH UD MM PRN (13:16)
[2018-06-25] MEDS ORDERED: ACETAMINOPHEN 325 MG TABLET (FP) PO PRN (13:16)
[2018-06-25] MEDS ORDERED: P-EPHED 60MG/TRIPROLIDI 2.5MG TABLET PO PRN (13:16)
[2018-06-25] MEDS ORDERED: MAGNESIUM HYDROX 2400MG/30ML ORAL SUSPENSION 30 ML CUP PO PRN (13:16)
[2018-06-25] MEDS ORDERED: MAG HYDROX/AL HYDROX/SIMETH 30 ML UNIT-DOSE CUP PO PRN (13:16)
[2018-06-25] MEDS ORDERED: MAGNESIUM CITRATE 300 ML BOTTLE PO PRN (13:16)
[2018-06-25] MEDS ORDERED: METHADONE HCL 10 MG TABLET (FOR DETOX USE ONLY) PO ONE ×2 (14:00→23:00)
[2018-06-25] MEDS: NICOTINE 14 MG/24 HOURS TOPICAL PATCH TD SCH (14:40)
[2018-06-25] MEDS: chlordiazePOXIDE HCL 25 MG CAPSULE PO PRN (14:51)
[2018-06-25] MEDS: hydrOXYzine PAMOATE 25 MG CAPSULE (FP) PO PRN ×2 (14:52→22:22)
--- NOTE | 2018-06-25 16:10 | CONSULT ---
[facility] Psychiatric Consult - Data Date of interview: 06/25/18 Admission source: [facility] Identifying data: Readmission to [facility] for this 53 y/o male, self- referred for detoxification treatment (alcohol, heroin). Admitted to [address] [place] [address]. 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 Substance Abuse History: Confirmed by the patient in this interview. Details in current [facility] report : Smoking history: Current every day smoker. Have you smoked in the past 12 months: Yes. Aproximately how many cigarettes per day: 10. Hx Chewing Tobacco Use: No. Initiated information on smoking cessation: Yes. 'Breaking Loose' booklet given: 06/25/18. - Substance & Tx. History. Hx Alcohol Use: Yes. Hx Substance Use: Yes. Substance Use Type: Alcohol, Heroin. Hx Substance Use Treatment: Yes ([facility] 05/08/18 to 05/13/18,rehab 05/13/18 to 05/17/18 not completed). - Substances Abused. Heroin. Route: Inhalation. Frequency: Daily. Amount used: 10 BAGS. Age of first use: 21. Date of Last Use: 06/25/18. Alcohol. Route: Oral. Frequency: Daily. Amount used: 3 6PKS BEER. Age of first use: 17. Date of Last Use: 06/24/18 Medical History: Patient endorses good general health. Admits to a history of plantar fasciitis, tendinitis of both knees and a distant antecedent of surgery (hiatal hernia at age 12). Psychiatric History: Patient denies history of psychiatric hospitalizations. Mr Sargent denies having a psychiatric illness.No history of psychiatric OPD care. Patient denies history of suicide attempts. Physical/Sexual Abuse/Trauma History: Patient denies. Additional Comment: Urine Drug Screen Results: OPI-Opiates, BZO-Benzodiazepines , FEN-Fentanyl. Noted. Mental Status Exam - Mental Status Exam Alert and Oriented to: Time, Place, Person Cognitive Function: Good Patient Appearance: Well Groomed Mood: Hopeful, Euthymic Affect: Appropriate, Normal Range Patient Behavior: Fatigued, Appropriate, Cooperative Speech Pattern: Clear, Appropriate Voice Loudness: Normal Thought Process: Intact, Goal Oriented Thought Disorder: Not Present Hallucinations: Denies Suicidal Ideation: Denies Homicidal Ideation: Denies Insight/Judgement: Poor Sleep: Poorly, Difficulty falling asleep Appetite: Good Muscle strength/Tone: Normal Gait/Station: Normal Psychiatric Findings - Problem List ([place] 1, 2,3) (1) Alcohol dependence with uncomplicated withdrawal Current Visit: Yes Status: Acute (2) Opioid dependence with withdrawal Current Visit: Yes Status: Acute (3) Nicotine dependence Current Visit: Yes Status: Acute Qualifiers: Nicotine product type: cigarettes Substance use status: uncomplicated Qualified Code(s): F17.210 - Nicotine dependence, cigarettes, uncomplicated (4) Insomnia Current Visit: Yes Status: Acute Qualifiers: Insomnia type: alcohol-induced Qualified Code(s): F10.982 - Alcohol use, unspecified with alcohol-induced sleep disorder - Initial Treatment Plan Initial Treatment Plan: Psychoeducation. Sleep hygiene. Detoxification in progress. Relapse prevention measures are discussed with the patient : benefits of naltrexone, suboxone, counseling and adherence to AA/NA fellowships. Mr Sargent has expressed the wish to get back on trazodone for insomnia. Patient is informed of the potential for priapism. " It never happened to me. Trazodone has always been helpful ". Consent (verbal) given to specification writer. Trazodone 100 mg po hs. Observation.
[2018-06-25] MEDS: chlordiazePOXIDE HCL 25 MG CAPSULE PO SCH ×2 (17:11→22:20)
[2018-06-25 17:26] LABS: URINE APPEARANCE CLEAR; URINE BILIRUBIN NEGATIVE (<2.0 mg/dL); URINE COLOR YELLOW; URINE GLUCOSE (UA) NEGATIVE (NEGATIVE); URINE KETONE NEGATIVE (NEGATIVE); URINE LEUK ESTERASE NEGATIVE (NEGATIVE); URINE NITRITE NEGATIVE (NEGATIVE); URINE PROTEIN NEGATIVE (NEGATIVE); URINE UROBILINOGEN NEGATIVE mg/dL (0.2-1.0)
[2018-06-25] MEDS ORDERED: MELATONIN 5 MG TABLETS PO PRN (22:00)
[2018-06-25] MEDS: THIAMINE HCL 100 MG TABLET (FP) PO SCH (22:20)
[2018-06-25] MEDS: traZODone HCL 100 MG TABLET (FP) PO SCH (22:20)
[2018-06-26] MEDS: chlordiazePOXIDE HCL 25 MG CAPSULE PO SCH ×4 (06:01→23:08)
[2018-06-26] MEDS ORDERED: METHADONE HCL 10 MG TABLET (FOR DETOX USE ONLY) PO SCH (10:00)
[2018-06-26] MEDS: PRENATAL VITAMINS W/ FOLIC ACID TABLET (FP) PO SCH (10:09)
[2018-06-26] MEDS: NICOTINE 14 MG/24 HOURS TOPICAL PATCH TD SCH (10:09)
[2018-06-26 10:12] LABS: HEMATOCRIT 42.6 % (35.4-49); HEMOGLOBIN 14.1 GM/dL (11.7-16.9); MCH 29.9 pg (25.7-33.7); MEAN CELL VOLUME 90.4 fl (80-96); MEAN PLT VOLUME 8.8 fl (7.5-11.1); PLATELET COUNT 240 K/MM3 (134-434); RBC 4.72 M/mm3 (4.00-5.60); WHITE BLOOD COUNT 6.1 K/mm3 (4.0-10.0)
[2018-06-26 10:30] LABS: ALBUMIN 3.4 g/dl (3.4-5.0); ALK PHOS 86 U/L (45-117); ANION GAP 7 MMOL/L (8-16); BILIRUBIN,TOTAL 0.5 mg/dL (0.2-1); BLOOD UREA NITROGEN 14 mg/dL (7-18); CALCIUM 8.2 mg/dL (8.5-10.1); CHLORIDE 106 mmol/L (98-107); CO2 28 mmol/L (21-32); CREATININE 0.7 mg/dL (0.55-1.3); GLUCOSE,RANDOM 81 mg/dL (74-106); POTASSIUM 4.3 mmol/L (3.5-5.1); SGOT/AST 13 U/L (15-37); SGPT/ALT 16 U/L (13-61); SODIUM 141 mmol/L (136-145); TOT PROT 6.3 g/dl (6.4-8.2)
--- NOTE | 2018-06-26 10:58 | PN ---
[facility] CIWA - CIWA Score Nausea/Vomitin-Mild Nausea/No Vomiting Muscle Tremors: 1-None Visible, but [place] Anxiety: 1-Mildly Anxious Agitation: 1-Slight > Activity Paroxysmal Sweats: 1-Minimal Palms Moist Orientation: 0-Oriented Tacttile Disturbances: 0-None Auditory Disturbances: 0-None Visual Disturbances: 0-None Headache: 0-None Present CIWA-Ar Total Score: 5 S COWS - Scale Resting Pulse: 1= [place] 81-100 Sweatin= No chills or Flushing Restless Observation: 1= Difficult to Sit Still Pupil Size: 0= Normal to Room Light Bone or Joint Aches: 1= Mild Discomfort Runny Nose/ Eye Tearin= Nasal Congestion GI Upset > 30mins: 0= None Tremor Observation of Outstretched Hands: 1= Tremor [place], Not Seen Yawning Observation: 0= None Anxiety or Irritability: 1=Feels Anxious/Irritable Goose Flesh Skin: 0=Smooth Skin COWS Score: 6 [facility] Progress Note (SOAP) Subjective: pt states he feels OK.No complaints this morning Obj: Vital Signs - 24 hr 06/25/18 06/25/18 06/25/18 11:58 17:23 22:14 Temperature 98.4 F 98.2 F 98.4 F Pulse Rate 71 64 76 Respiratory 18 16 16 Rate Blood Pressure 131/85 111/70 140/74 06/26/18 06/26/18 06/26/18 00:30 03:30 06:00 Temperature 97.5 F L Pulse Rate 60 Respiratory 18 18 18 Rate Blood Pressure 112/69 06/26/18 09:58 Temperature 97.7 F Pulse Rate 58 L Respiratory 16 Rate Blood Pressure 135/75 Laboratory Tests 06/25/18 06/26/18 06/26/18 16:56 07:00 07:00 WBC 6.1 RBC 4.72 Hgb 14.1 Hct 42.6 MCV 90.4 MCH 29.9 MCHC 33.0 RDW 14.0 Plt Count 240 MPV 8.8 Sodium 141 Potassium 4.3 Chloride 106 Carbon Dioxide 28 Anion Gap 7 L BUN 14 Creatinine 0.7 Creat Clearance w eGFR > 60 Random Glucose 81 Calcium 8.2 L Total Bilirubin 0.5 AST 13 L ALT 16 Alkaline Phosphatase 86 Total Protein 6.3 L Albumin 3.4 Urine Color Yellow Urine Appearance Clear Urine pH 5.0 Ur Specific [place] 1.024 Urine Protein Negative Urine Glucose (UA) Negative Urine Ketones Negative Urine Blood Negative Urine Nitrite Negative Urine Bilirubin Negative Urine Urobilinogen Negative Ur Leukocyte Esterase Negative VS good and labs WNL A/p: alcohol and opioid use disorder: continue methadone and librium detox protocol, pt stable
--- NOTE | 2018-06-26 11:37 | EKG ---
Test Reason : Blood Pressure : / mmHG Vent. Rate : 058 BPM Atrial Rate : 058 BPM P-R Int : 120 ms QRS Dur : 102 ms QT Int : 416 ms P-R-T Axes : 050 055 041 degrees QTc Int : 408 ms SINUS BRADYCARDIA VOLTAGE CRITERIA FOR LEFT VENTRICULAR HYPERTROPHY ABNORMAL ECG WHEN COMPARED WITH ECG OF 08-MAY-2018 13:24, NO SIGNIFICANT CHANGE WAS FOUND Confirmed by MARCELA CLARKE MD ([id number]) on 06/26/2018 11:37:09 AM Referred By: Confirmed By:MARCELA CLARKE MD
[2018-06-26] MEDS: hydrOXYzine PAMOATE 25 MG CAPSULE (FP) PO PRN (19:40)
[2018-06-26] MEDS: chlordiazePOXIDE HCL 25 MG CAPSULE PO PRN (19:40)
[2018-06-26] MEDS: THIAMINE HCL 100 MG TABLET (FP) PO SCH (23:07)
[2018-06-26] MEDS: traZODone HCL 100 MG TABLET (FP) PO SCH (23:07)
[2018-06-27] MEDS: chlordiazePOXIDE HCL 25 MG CAPSULE PO SCH ×2 (07:47→10:41)
[2018-06-27] MEDS: PRENATAL VITAMINS W/ FOLIC ACID TABLET (FP) PO SCH (10:40)
[2018-06-27] MEDS: METHADONE HCL 5 MG TABLET (FOR DETOX USE ONLY) PO SCH (10:41)
[2018-06-27] MEDS: NICOTINE 14 MG/24 HOURS TOPICAL PATCH TD SCH (10:41)
[2018-06-27] MEDS: hydrOXYzine PAMOATE 25 MG CAPSULE (FP) PO PRN ×2 (11:50→22:13)
--- NOTE | 2018-06-27 15:08 | PN ---
[facility] CIWA - CIWA Score Nausea/Vomitin-No Nausea/No Vomiting Muscle Tremors: None Anxiety: 4-Mod. Anxious/Guarded Agitation: 3 Paroxysmal Sweats: 2 Orientation: 0-Oriented Tacttile Disturbances: 0-None Auditory Disturbances: 0-None Visual Disturbances: 2-Mild Sensitivity Headache: 0-None Present CIWA-Ar Total Score: 11 [facility] COWS - Scale Resting Pulse: 1= [place] 81-100 Sweatin= Chills/Flushing Restless Observation: 1= Difficult to Sit Still Pupil Size: 0= Normal to Room Light Bone or Joint Aches: 2= Severe Diffuse Aches Runny Nose/ Eye Tearin= Nasal Congestion GI Upset > 30mins: 0= None Tremor Observation of Outstretched Hands: 2= Slight Tremor Visible Yawning Observation: 1= 1-2x During Session Anxiety or Irritability: 2=Irritable/Anxious Goose Flesh Skin: 0=Smooth Skin COWS Score: 11 [facility] Progress Note (SOAP) Subjective: Tremors, Anxious, Body Aches, Nasal Congestion. Objective: PATIENT A & O X 3, OBSERVED AMBULATING ON UNIT. NO ACUTE DISTRESS. 06/27/18 15:09 Vital Signs Temperature 98.1 F 06/27/18 13:25 Pulse Rate 87 06/27/18 13:25 Respiratory Rate 18 06/27/18 13:25 Blood Pressure 124/83 06/27/18 13:25 O2 Sat by Pulse Oximetry (%) Laboratory Tests 06/25/18 06/26/18 06/26/18 16:56 07:00 07:00 WBC 6.1 RBC 4.72 Hgb 14.1 Hct 42.6 MCV 90.4 MCH 29.9 MCHC 33.0 RDW 14.0 Plt Count 240 MPV 8.8 Sodium 141 Potassium 4.3 Chloride 106 Carbon Dioxide 28 Anion Gap 7 L BUN 14 Creatinine 0.7 Creat Clearance w eGFR > 60 Random Glucose 81 Calcium 8.2 L Total Bilirubin 0.5 AST 13 L ALT 16 Alkaline Phosphatase 86 Total Protein 6.3 L Albumin 3.4 Urine Color Yellow Urine Appearance Clear Urine pH 5.0 Ur Specific [place] 1.024 Urine Protein Negative Urine Glucose (UA) Negative Urine Ketones Negative Urine Blood Negative Urine Nitrite Negative Urine Bilirubin Negative Urine Urobilinogen Negative Ur Leukocyte Esterase Negative RPR Titer 06/26/18 07:00 WBC RBC Hgb Hct MCV MCH MCHC RDW Plt Count MPV Sodium Potassium Chloride Carbon Dioxide Anion Gap BUN Creatinine Creat Clearance w eGFR Random Glucose Calcium Total Bilirubin AST ALT Alkaline Phosphatase Total Protein Albumin Urine Color Urine Appearance Urine pH Ur Specific [place] Urine Protein Urine Glucose (UA) Urine Ketones Urine Blood Urine Nitrite Urine Bilirubin Urine Urobilinogen Ur Leukocyte Esterase RPR Titer Nonreactive LABS NOTED. Assessment: 06/27/18 15:10 WITHDRAWAL SYMPTOMS. Plan: CONTINUE DETOX.
[2018-06-27] MEDS: chlordiazePOXIDE 5 MG CAPSULE PO SCH ×2 (17:58→22:12)
[2018-06-27] MEDS: THIAMINE HCL 100 MG TABLET (FP) PO SCH (22:12)
[2018-06-27] MEDS: traZODone HCL 100 MG TABLET (FP) PO SCH (22:12)
[2018-06-28] MEDS: chlordiazePOXIDE 5 MG CAPSULE PO SCH ×2 (06:19→10:09)
[2018-06-28] MEDS: PRENATAL VITAMINS W/ FOLIC ACID TABLET (FP) PO SCH (10:09)
[2018-06-28] MEDS: METHADONE HCL 5 MG TABLET (FOR DETOX USE ONLY) PO SCH (10:09)
[2018-06-28] MEDS: NICOTINE 14 MG/24 HOURS TOPICAL PATCH TD SCH (10:10)
--- NOTE | 2018-06-28 16:12 | PN ---
[facility] Progress Note (SOAP) Subjective: pt without compalints- states he is doing well- on detox protocol Obj: Vital Signs - 24 hr 06/27/18 06/27/18 06/28/18 17:56 22:08 00:30 Temperature 98.2 F 98.2 F Pulse Rate 77 79 Respiratory 18 18 18 Rate Blood Pressure 114/70 116/72 06/28/18 06/28/18 06/28/18 03:30 08:20 09:33 Temperature 97.5 F L 98.4 F Pulse Rate 64 95 H Respiratory 18 18 16 Rate Blood Pressure 117/67 128/69 06/28/18 13:50 Temperature 98.2 F Pulse Rate 93 H Respiratory 18 Rate Blood Pressure 105/61 Laboratory Tests 06/25/18 06/26/18 06/26/18 16:56 07:00 07:00 WBC 6.1 RBC 4.72 Hgb 14.1 Hct 42.6 MCV 90.4 MCH 29.9 MCHC 33.0 RDW 14.0 Plt Count 240 MPV 8.8 Sodium 141 Potassium 4.3 Chloride 106 Carbon Dioxide 28 Anion Gap 7 L BUN 14 Creatinine 0.7 Creat Clearance w eGFR > 60 Random Glucose 81 Calcium 8.2 L Total Bilirubin 0.5 AST 13 L ALT 16 Alkaline Phosphatase 86 Total Protein 6.3 L Albumin 3.4 Urine Color Yellow Urine Appearance Clear Urine pH 5.0 Ur Specific [place] 1.024 Urine Protein Negative Urine Glucose (UA) Negative Urine Ketones Negative Urine Blood Negative Urine Nitrite Negative Urine Bilirubin Negative Urine Urobilinogen Negative Ur Leukocyte Esterase Negative RPR Titer 06/26/18 07:00 WBC RBC Hgb Hct MCV MCH MCHC RDW Plt Count MPV Sodium Potassium Chloride Carbon Dioxide Anion Gap BUN Creatinine Creat Clearance w eGFR Random Glucose Calcium Total Bilirubin AST ALT Alkaline Phosphatase Total Protein Albumin Urine Color Urine Appearance Urine pH Ur Specific [place] Urine Protein Urine Glucose (UA) Urine Ketones Urine Blood Urine Nitrite Urine Bilirubin Urine Urobilinogen Ur Leukocyte Esterase RPR Titer Nonreactive a/p: pt doing well- continue detox protocol
[2018-06-28] MEDS: chlordiazePOXIDE HCL 10 MG CAPSULE PO SCH ×2 (20:23→22:19)
[2018-06-28] MEDS: THIAMINE HCL 100 MG TABLET (FP) PO SCH (22:19)
[2018-06-28] MEDS: traZODone HCL 100 MG TABLET (FP) PO SCH (22:19)
[2018-06-28] MEDS: hydrOXYzine PAMOATE 25 MG CAPSULE (FP) PO PRN (22:19)
[2018-06-29] MEDS: chlordiazePOXIDE HCL 10 MG CAPSULE PO SCH ×2 (07:37→10:14)
[2018-06-29] MEDS ORDERED: METHADONE HCL 10 MG TABLET (FOR DETOX USE ONLY) PO SCH (10:00)
[2018-06-29] MEDS: PRENATAL VITAMINS W/ FOLIC ACID TABLET (FP) PO SCH (10:14)
[2018-06-29] MEDS: NICOTINE 14 MG/24 HOURS TOPICAL PATCH TD SCH (10:14)
--- NOTE | 2018-06-29 10:30 | PN ---
S Progress Note (SOAP) Subjective: Interrupted sleep, muscle weakness Objective: 06/29/18 10:28 Vital Signs 06/29/18 06/29/18 06/29/18 03:30 06:00 09:20 Temperature 97.5 F L 97.4 F L Pulse Rate 62 82 Respiratory 16 18 18 Rate Blood Pressure 114/63 118/75 Laboratory Last Values WBC 6.1 K/mm3 (4.0-10.0) 06/26/18 07:00 RBC 4.72 M/mm3 (4.00-5.60) 06/26/18 07:00 Hgb 14.1 GM/dL (11.7-16.9) 06/26/18 07:00 Hct 42.6 % (35.4-49) 06/26/18 07:00 MCV 90.4 fl (80-96) 06/26/18 07:00 MCH 29.9 pg (25.7-33.7) 06/26/18 07:00 MCHC 33.0 g/dl (32.0-35.9) 06/26/18 07:00 RDW 14.0 % (11.9-15.9) 06/26/18 07:00 Plt Count 240 K/MM3 (134-434) 06/26/18 07:00 MPV 8.8 fl (7.5-11.1) 06/26/18 07:00 Sodium 141 mmol/L (136-145) 06/26/18 07:00 Potassium 4.3 mmol/L (3.5-5.1) 06/26/18 07:00 Chloride 106 mmol/L (98-107) 06/26/18 07:00 Carbon Dioxide 28 mmol/L (21-32) 06/26/18 07:00 Anion Gap 7 MMOL/L (8-16) L 06/26/18 07:00 BUN 14 mg/dL (7-18) 06/26/18 07:00 Creatinine 0.7 mg/dL (0.55-1.3) 06/26/18 07:00 Creat Clearance w eGFR > 60 (>60) 06/26/18 07:00 Random Glucose 81 mg/dL (74-106) 06/26/18 07:00 Calcium 8.2 mg/dL (8.5-10.1) L 06/26/18 07:00 Total Bilirubin 0.5 mg/dL (0.2-1) 06/26/18 07:00 AST 13 U/L (15-37) L 06/26/18 07:00 ALT 16 U/L (13-61) 06/26/18 07:00 Alkaline Phosphatase 86 U/L (45-117) 06/26/18 07:00 Total Protein 6.3 g/dl (6.4-8.2) L 06/26/18 07:00 Albumin 3.4 g/dl (3.4-5.0) 06/26/18 07:00 Urine Color Yellow 06/25/18 16:56 Urine Appearance Clear 06/25/18 16:56 Urine pH 5.0 (5.0-8.0) 06/25/18 16:56 Ur Specific [place] 1.024 (1.010-1.035) 06/25/18 16:56 Urine Protein Negative (NEGATIVE) 06/25/18 16:56 Urine Glucose (UA) Negative (NEGATIVE) 06/25/18 16:56 Urine Ketones Negative (NEGATIVE) 06/25/18 16:56 Urine Blood Negative (NEGATIVE) 06/25/18 16:56 Urine Nitrite Negative (NEGATIVE) 06/25/18 16:56 Urine Bilirubin Negative (<2.0 mg/dL) 06/25/18 16:56 Urine Urobilinogen Negative mg/dL (0.2-1.0) 06/25/18 16:56 Ur Leukocyte Esterase Negative (NEGATIVE) 06/25/18 16:56 RPR Titer Nonreactive (NONREACTIVE) 06/26/18 07:00 Labs noted Alert, no apparent distress Assessment: 06/29/18 10:29 Withdrawal sx, improved Plan: Continue detox
--- NOTE | 2018-06-29 16:46 | PN ---
[facility] Progress Note Note: Psychiatry Attending's note : Met briefly with patient. Complaint : Trazodone not effective at 100 mg/hs. Insomnia not resolved. " I get result on 150 mg at bedtime ". Commented Mr Arie. Intervention : Trazodone is raised to 150 mg po hs. Patient agrees. Will follow response.
[2018-06-29] MEDS: hydrOXYzine PAMOATE 25 MG CAPSULE (FP) PO PRN ×2 (17:52→22:54)
[2018-06-29] MEDS ORDERED: traZODone HCL 150 MG TABLET PO SCH (22:00)
[2018-06-29] MEDS: THIAMINE HCL 100 MG TABLET (FP) PO SCH (22:52)
[2018-06-30] MEDS ORDERED: METHADONE HCL 5 MG TABLET (FOR DETOX USE ONLY) PO SCH (06:00)
--- NOTE | 2018-06-30 08:33 | DS ---
[facility] Detox Discharge Summary Admission Date: 06/25/18 Discharge Date: 06/30/18 - History Present History: Alcohol Dependence, Opioid Dependence Additional Comments: 53 years old male admitted on 06/25/18 for alcohol and opiate withdrawal sx completed detox regimen tolerated well denies alcohol and opiate withdrawal sx alert oriented x 3 no acute distress aftercare revelation, agrees to return to [facility] for revelation admission - Physical Exam Results Vital Signs: Vital Signs Temperature 97.2 F L 06/30/18 06:00 Pulse Rate 62 06/30/18 06:00 Respiratory Rate 18 06/30/18 06:00 Blood Pressure 110/60 06/30/18 06:00 O2 Sat by Pulse Oximetry (%) Pertinent Admission Physical Exam Findings: alcohol and opiate withdrawal sx Vital Signs Temperature 97.3 F L 06/30/18 09:56 Pulse Rate 81 06/30/18 09:56 Respiratory Rate 20 06/30/18 09:56 Blood Pressure 114/62 06/30/18 09:56 O2 Sat by Pulse Oximetry (%) Laboratory Last Values WBC 6.1 K/mm3 (4.0-10.0) 06/26/18 07:00 RBC 4.72 M/mm3 (4.00-5.60) 06/26/18 07:00 Hgb 14.1 GM/dL (11.7-16.9) 06/26/18 07:00 Hct 42.6 % (35.4-49) 06/26/18 07:00 MCV 90.4 fl (80-96) 06/26/18 07:00 MCH 29.9 pg (25.7-33.7) 06/26/18 07:00 MCHC 33.0 g/dl (32.0-35.9) 06/26/18 07:00 RDW 14.0 % (11.9-15.9) 06/26/18 07:00 Plt Count 240 K/MM3 (134-434) 06/26/18 07:00 MPV 8.8 fl (7.5-11.1) 06/26/18 07:00 Sodium 141 mmol/L (136-145) 06/26/18 07:00 Potassium 4.3 mmol/L (3.5-5.1) 06/26/18 07:00 Chloride 106 mmol/L (98-107) 06/26/18 07:00 Carbon Dioxide 28 mmol/L (21-32) 06/26/18 07:00 Anion Gap 7 MMOL/L (8-16) L 06/26/18 07:00 BUN 14 mg/dL (7-18) 06/26/18 07:00 Creatinine 0.7 mg/dL (0.55-1.3) 06/26/18 07:00 Creat Clearance w eGFR > 60 (>60) 06/26/18 07:00 Random Glucose 81 mg/dL (74-106) 06/26/18 07:00 Calcium 8.2 mg/dL (8.5-10.1) L 06/26/18 07:00 Total Bilirubin 0.5 mg/dL (0.2-1) 06/26/18 07:00 AST 13 U/L (15-37) L 06/26/18 07:00 ALT 16 U/L (13-61) 06/26/18 07:00 Alkaline Phosphatase 86 U/L (45-117) 06/26/18 07:00 Total Protein 6.3 g/dl (6.4-8.2) L 06/26/18 07:00 Albumin 3.4 g/dl (3.4-5.0) 06/26/18 07:00 Urine Color Yellow 06/25/18 16:56 Urine Appearance Clear 06/25/18 16:56 Urine pH 5.0 (5.0-8.0) 06/25/18 16:56 Ur Specific [place] 1.024 (1.010-1.035) 06/25/18 16:56 Urine Protein Negative (NEGATIVE) 06/25/18 16:56 Urine Glucose (UA) Negative (NEGATIVE) 06/25/18 16:56 Urine Ketones Negative (NEGATIVE) 06/25/18 16:56 Urine Blood Negative (NEGATIVE) 06/25/18 16:56 Urine Nitrite Negative (NEGATIVE) 06/25/18 16:56 Urine Bilirubin Negative (<2.0 mg/dL) 06/25/18 16:56 Urine Urobilinogen Negative mg/dL (0.2-1.0) 06/25/18 16:56 Ur Leukocyte Esterase Negative (NEGATIVE) 06/25/18 16:56 RPR Titer Nonreactive (NONREACTIVE) 06/26/18 07:00 lab noted - Treatment Hospital Course: Detox Protocol Followed, Detoxed Safely, Responded well, Discharged Condition Good, Rehab Referral Accepted Patient has Accepted a Re[facility] Referral to: [email or web address] - Medication Discharge Medications: Ambulatory Orders NK [No Known Home Medication] 06/25/18 - Diagnosis (1) Alcohol dependence with uncomplicated withdrawal Current Visit: Yes Status: Acute (2) Nicotine dependence Current Visit: Yes Status: Acute Qualifiers: Nicotine product type: cigarettes Substance use status: in withdrawal Qualified Code(s): F17.213 - Nicotine dependence, cigarettes, with withdrawal (3) Opioid dependence with withdrawal Current Visit: Yes Status: Acute - AMA Did Patient Leave Against Medical Advice: No
[2018-06-30 09:57] VITALS: BP 114/62; PULSE 81; TEMP 97.3
== END 2018-06-30 09:45 | disposition home or self-care (01) | DRG 773 ==
LOC: YASAS 11:14 → Y6N 13:32
PROC: HZ2ZZZZ Detoxification Services for Substance Abuse Treatment (ICD-10-PCS; principal; 2018-06-25)
DX: F11.23 Opioid dependence with withdrawal (principal); F10.230 Alcohol dependence with withdrawal, uncomplicated; F17.213 Nicotine dependence, cigarettes, with withdrawal; F19.282 Other psychoactive substance dependence with psychoactive substance-induced sleep disorder; F51.05 Insomnia due to other mental disorder; F41.8 Other specified anxiety disorders; F32.9 Major depressive disorder, single episode, unspecified; M72.2 Plantar fascial fibromatosis; R63.4 Abnormal weight loss; Z68.26 Body mass index [BMI] 26.0-26.9, adult; Z87.738 Personal history of other specified (corrected) congenital malformations of digestive system
CPT/HCPCS: 36415; 80053; 81003; 85027; 86593; 93005; 93010

== ENCOUNTER 2020-12-03 15:19 | Inpatient (IN) | payer OTHER ==
[2020-12-03 17:51] VITALS: BMI 28.5
[2020-12-03] MEDS ORDERED: ACETAMINOPHEN 325 MG TABLET (FP) PO PRN ×2 (19:35)
[2020-12-03] MEDS ORDERED: IBUPROFEN 400 MG TABLET (FP) PO PRN (19:35)
[2020-12-03] MEDS ORDERED: METHADONE HCL 10 MG TABLET (FOR DETOX USE ONLY) PO ONE (19:35)
[2020-12-03] MEDS ORDERED: MENTHOL/PHENOL 1 EACH UD MM PRN (19:35)
[2020-12-03] MEDS ORDERED: MAGNESIUM CITRATE 300 ML BOTTLE PO PRN (19:35)
[2020-12-03] MEDS ORDERED: MAG HYDROX/AL HYDROX/SIMETH 30 ML UNIT-DOSE CUP PO PRN (19:35)
[2020-12-03] MEDS ORDERED: ONDANSETRON *ODT* 4 MG TABLET SL PRN (19:35)
[2020-12-03] MEDS ORDERED: MAGNESIUM HYDROX 2400MG/30ML ORAL SUSPENSION 30 ML CUP PO PRN (19:35)
[2020-12-03] MEDS ORDERED: BISMUTH SUBSALICYLATE 524 MG/30 ML UD PO PRN (19:35)
[2020-12-03] MEDS ORDERED: MELATONIN 5 MG TABLETS PO SCH (22:00)
[2020-12-03] MEDS ORDERED: cloNIDine HCL 0.1 MG TABLET ONE (23:30)
[2020-12-03] MEDS ORDERED: hydrOXYzine PAMOATE 25 MG CAPSULE (FP) PO ONE (23:30)
[2020-12-03] MEDS ORDERED: METHADONE HCL 10 MG TABLET (FOR DETOX USE ONLY) ONE (23:32)
[2020-12-03] MEDS: THIAMINE HCL 100 MG TABLET (FP) PO SCH (23:34)
[2020-12-03] MEDS: hydrOXYzine PAMOATE 25 MG CAPSULE (FP) PO SCH (23:34)
[2020-12-03] MEDS: cloNIDine HCL 0.1 MG TABLET PO PRN (23:35)
[2020-12-04] MEDS: hydrOXYzine PAMOATE 25 MG CAPSULE (FP) PO SCH ×5 (07:30→22:25)
[2020-12-04] MEDS ORDERED: METHADONE HCL 10 MG TABLET (FOR DETOX USE ONLY) ONE (09:34)
[2020-12-04] MEDS ORDERED: METHADONE HCL 5 MG TABLET (FOR DETOX USE ONLY) ONE (09:35)
[2020-12-04] MEDS ORDERED: METHADONE (DETOX) 20 MG, METHADONE (DETOX) 5 MG PO ONE (10:00)
[2020-12-04] MEDS: PRENATAL VITAMINS W/ FOLIC ACID TABLET (FP) PO SCH (10:44)
[2020-12-04 11:05] LABS: HEMATOCRIT 37.9 % (35.4-49); HEMOGLOBIN 12.7 GM/dL (11.7-16.9); MCH 29.1 pg (25.7-33.7); MCHC 33.4 g/dl (32.0-35.9); MEAN PLT VOLUME 8.4 fl (7.5-11.1); PLATELET COUNT 271 K/MM3 (134-434); RBC 4.35 M/mm3 (4.00-5.60); RDW 15.4 % (11.9-15.9); WHITE BLOOD COUNT 6.5 K/mm3 (4.0-10.0)
[2020-12-04 11:23] LABS: ALBUMIN 3.3 g/dl (3.4-5.0); BLOOD UREA NITROGEN 14.4 mg/dL (7-18)
[2020-12-04 11:27] LABS: BILIRUBIN,TOTAL 0.5 mg/dL (0.2-1); TOT PROT 6.4 g/dl (6.4-8.2)
[2020-12-04 11:32] LABS: CALCIUM 8.7 mg/dL (8.5-10.1); CREATININE 0.7 mg/dL (0.55-1.3)
[2020-12-04] MEDS: cloNIDine HCL 0.1 MG TABLET PO PRN (18:27)
[2020-12-04] MEDS: THIAMINE HCL 100 MG TABLET (FP) PO SCH (22:25)
[2020-12-04] MEDS: traZODone HCL 50 MG TABLET (FP) PO SCH (22:25)
[2020-12-04] MEDS: MELATONIN 5 MG TABLETS PO PRN (22:25)
[2020-12-05] MEDS: hydrOXYzine PAMOATE 25 MG CAPSULE (FP) PO SCH ×5 (06:52→22:44)
[2020-12-05] MEDS ORDERED: METHADONE HCL 10 MG TABLET (FOR DETOX USE ONLY) PO ONE (10:00)
[2020-12-05] MEDS: PRENATAL VITAMINS W/ FOLIC ACID TABLET (FP) PO SCH (10:57)
[2020-12-05] MEDS: cloNIDine HCL 0.1 MG TABLET PO PRN (19:38)
[2020-12-05] MEDS: traZODone HCL 50 MG TABLET (FP) PO SCH (22:44)
[2020-12-05] MEDS: THIAMINE HCL 100 MG TABLET (FP) PO SCH (22:44)
[2020-12-05] MEDS: MELATONIN 5 MG TABLETS PO PRN (22:46)
[2020-12-06] MEDS: hydrOXYzine PAMOATE 25 MG CAPSULE (FP) PO SCH ×5 (07:03→21:29)
[2020-12-06] MEDS ORDERED: METHADONE HCL 10 MG TABLET (FOR DETOX USE ONLY) ONE (08:43)
[2020-12-06] MEDS ORDERED: METHADONE HCL 5 MG TABLET (FOR DETOX USE ONLY) ONE (08:44)
[2020-12-06] MEDS ORDERED: METHADONE (DETOX) 10 MG, METHADONE (DETOX) 5 MG PO ONE (10:00)
[2020-12-06] MEDS: PRENATAL VITAMINS W/ FOLIC ACID TABLET (FP) PO SCH (11:00)
[2020-12-06] MEDS: METHOCARBAMOL 500 MG TABLET PO PRN (11:00)
[2020-12-06] MEDS: MELATONIN 5 MG TABLETS PO PRN (21:28)
[2020-12-06] MEDS: traZODone HCL 50 MG TABLET (FP) PO SCH (21:28)
[2020-12-06] MEDS: THIAMINE HCL 100 MG TABLET (FP) PO SCH (21:28)
[2020-12-07 06:07] LABS: SARS-CoV-2 NAA Not Detected (Not Detected)
[2020-12-07] MEDS: hydrOXYzine PAMOATE 25 MG CAPSULE (FP) PO SCH ×2 (06:28→11:49)
[2020-12-07] MEDS ORDERED: METHADONE HCL 10 MG TABLET (FOR DETOX USE ONLY) PO ONE (10:00)
[2020-12-07] MEDS ORDERED: hydrOXYzine PAMOATE 25 MG CAPSULE (FP) PO PRN (10:37)
[2020-12-07] MEDS: PRENATAL VITAMINS W/ FOLIC ACID TABLET (FP) PO SCH (11:50)
[2020-12-07] MEDS: METHOCARBAMOL 500 MG TABLET PO PRN (11:50)
[2020-12-08] MEDS: THIAMINE HCL 100 MG TABLET (FP) PO SCH (00:14)
[2020-12-08] MEDS: traZODone HCL 50 MG TABLET (FP) PO SCH (00:14)
[2020-12-08] MEDS ORDERED: METHADONE HCL 5 MG TABLET (FOR DETOX USE ONLY) PO ONE (06:00)
[2020-12-08 09:03] VITALS: BP 114/74; PULSE 65; TEMP 97.3
== END 2020-12-08 09:30 | disposition home or self-care (01) | DRG 773 ==
LOC: YASAS 15:19 → Y3N 12-04 03:36
PROVIDERS: ADMIT Allergy & Immunology; ATTEND Allergy & Immunology
PROC: HZ2ZZZZ Detoxification Services for Substance Abuse Treatment (ICD-10-PCS; principal; 2020-12-04)
DX: F11.23 Opioid dependence with withdrawal (principal); F10.230 Alcohol dependence with withdrawal, uncomplicated; F17.211 Nicotine dependence, cigarettes, in remission; F19.282 Other psychoactive substance dependence with psychoactive substance-induced sleep disorder; F98.8 Other specified behavioral and emotional disorders with onset usually occurring in childhood and adolescence; F90.9 Attention-deficit hyperactivity disorder, unspecified type; F41.8 Other specified anxiety disorders; F32.9 Major depressive disorder, single episode, unspecified; F51.05 Insomnia due to other mental disorder; E88.09 Other disorders of plasma-protein metabolism, not elsewhere classified; M72.2 Plantar fascial fibromatosis; R63.4 Abnormal weight loss; Z68.28 Body mass index [BMI] 28.0-28.9, adult; Z87.738 Personal history of other specified (corrected) congenital malformations of digestive system; Z88.8 Allergy status to other drugs, medicaments and biological substances; Z91.013 Allergy to seafood; Z98.890 Other specified postprocedural states
CPT/HCPCS: 36415; 80053; 85027; 86780; 93005; 93010; C9803; J0735; U0003; U0005